=== PATIENT | female | born 2000 | race Asian ===

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

== ENCOUNTER 2019-08-07 21:54 | Emergency (ER) | payer OTHER, BC ==
[~2019-08-07] VITALS: Ht 160 cm; Wt 86.2 kg
[2019-08-07 22:13] VITALS: Ht 160 cm; Wt 86.2 kg
[2019-08-08 01:21] VITALS: BP 138/83
== END 2019-08-08 01:22 | disposition home or self-care (01) ==
LOC: ED 21:54
DX: S09.90XA Unspecified injury of head, initial encounter (principal); M79.604 Pain in right leg; V49.9XXA Car occupant (driver) (passenger) injured in unspecified traffic accident, initial encounter; Y93.I9 Activity, other involving external motion; Y92.413 State road as the place of occurrence of the external cause; Y99.8 Other external cause status